=== PATIENT | female | born 1945 | race Caucasian/White ===

== ENCOUNTER 2020-03-06 06:22 | Day surgery (SDC) | payer MEDICARE, BC ==
[2020-03-06] MEDS ORDERED: Propofol 200 MG/20 ML SDV IV ONE (06:23)
[2020-03-06] MEDS ORDERED: Lactated Ringers 1,000 ML IV SCH (06:30)
[2020-03-06] MEDS ORDERED: Sodium Chloride 0.9% 10 ML Syringe FLUSH PRN (06:30)
--- NOTE | 2020-03-06 08:11 | PCM.HP.2 ---
H&P History of Present Illness - General Date of Service: 03/06/20 Admit Problem/Dx: Admission Diagnosis/Problem Admission Diagnosis/Problem Colonoscopy Source of Information: Patient, Old Records History Limitations: Reports: No Limitations - History of Present Illness Initial Comments - Free Text/Narative: Here for colonoscopy for hx polyps, last one 5 yrs ago - Related Data Allergies/Adverse Reactions: Allergies Allergy/AdvReac Type Severity Reaction Status Date / Time amoxicillin [From Augmentin] AdvReac Diarrhea Verified 03/06/20 07:04 clavulanic acid AdvReac Diarrhea Verified 03/06/20 07:04 [From Augmentin] Home Medications: Home Meds Moexipril/Hydrochlorothiazide [Moexipril-HCTZ 15-25 MG] 0.5 each PO DAILY 11/29/14 [History] Omeprazole [Prilosec] 40 mg PO Q2D 11/29/14 [History] Sertraline [Zoloft] 200 mg PO DAILY 11/29/14 [History] Tolterodine Tartrate [Tolterodine Tartrate ER] 4 mg PO DAILY 11/29/14 [History] atorvaSTATin [Lipitor] 20 mg PO BEDTIME 11/29/14 [History] busPIRone [Buspar] 10 mg PO BID 11/29/14 [History] atenoloL [Tenormin] 25 mg PO DAILY 12/03/14 [History] Acetaminophen [Tylenol] 650 mg PO Q6H PRN 03/05/20 [History] Albuterol Sulfate [Proair Hfa] 1 - 2 puff INH Q6H PRN 03/05/20 [History] Aspirin [Adult Low Dose Aspirin EC] 81 mg PO DAILY 03/05/20 [History] Azelastine [Astelin Nasal Soln] 2 inhalation NASBOTH BID 03/05/20 [History] Calcium Carbonate/Vitamin D3 [Calcium 600 + Vit D 200] 1 tab PO DAILY 03/05/20 [History] Carboxymethylcellulos/Glycerin [Refresh Optive] 1 drop OP ASDIRECTED PRN 03/05/20 [History] Cetirizine [ZyrTEC] 10 mg PO DAILY 03/05/20 [History] Cholecalciferol (Vitamin D3) [Vitamin D] 2,000 unit PO DAILY 03/05/20 [History] Ketotifen Fumarate [Zaditor] 1 drop EYEBOTH TID PRN 03/05/20 [History] Levothyroxine Sodium [Synthroid] 25 mcg PO DAILY 03/05/20 [History] Liraglutide [Victoza 3-Aris] 1.2 mg INJECT DAILY 03/05/20 [History] Magnesium Oxide [Magnesium] 800 mg PO DAILY 03/05/20 [History] Montelukast Sodium [Singulair] 10 mg PO BEDTIME 03/05/20 [History] Multivitamin [Multivitamins] 1 tab PO DAILY 03/05/20 [History] Nitroglycerin [Nitrostat] 0.4 mg SL ASDIRECTED PRN 03/05/20 [History] Nystatin 1 applic TOP BID 03/05/20 [History] O'Kean-3/DHA/Epa/Fish Oil [O'Kean-3 Fish Oil 1,000 MG Sfgl] 1,000 mg PO DAILY 03/05/20 [History] Potassium Chloride [Klor-Con M20] 20 meq PO BID 03/05/20 [History] Vit C/Vit E AC/Lut/Copper/Zinc [Preservision Softgel] 1 cap PO BID 03/05/20 [History] buPROPion HCL [Wellbutrin Xl] 150 mg PO DAILY 03/05/20 [History] guaiFENesin [Mucinex] 600 mg PO DAILY 03/05/20 [History] Past Medical History HEENT History: Reports: Cataract, Glaucoma, Impaired Vision, Macular Degeneration Cardiovascular History: Reports: High Cholesterol, Hypertension Respiratory History: Reports: Asthma, Sleep Apnea Gastrointestinal History: Reports: GERD Genitourinary History: Reports: Urinary Incontinence CASTING SORTER History: Reports: None Musculoskeletal History: Reports: Osteoarthritis Neurological History: Reports: None Psychiatric History: Reports: Anxiety, Depression Endocrine/Metabolic History: Reports: Diabetes, Type II Hematologic History: Reports: Anemia Immunologic History: Reports: None Oncologic (Cancer) History: Reports: None Dermatologic History: Reports: None - Past Surgical History Head Surgeries/Procedures: Reports: None HEENT Surgical History: Reports: Cataract Surgery Cardiovascular Surgical History: Reports: None Respiratory Surgical History: Reports: None GI Surgical History: Reports: Appendectomy, Cholecystectomy, Colonoscopy, Other (See Below) Other GI Surgeries/Procedures: HEMORRHOID SURGERY Female Surgical History: Reports: Breast Biopsy, Oophorectomy Endocrine Surgical History: Reports: None Neurological Surgical History: Reports: None Musculoskeletal Surgical History: Reports: Carpal Tunnel, Knee Replacement, Shoulder Replacement, Other (See Below) Other Musculoskeletal Surgeries/Procedures:: BILAT CARPAL TUNNEL RELEASE. L REVERSE TOTAL SHOULDER. BILAT KNEE REPLACEMENT Oncologic Surgical History: Reports: None Dermatological Surgical History: Reports: None Social & Family History - Tobacco Use Smoking Status *Q: Former Smoker Years of Tobacco use: 30 - Caffeine Use Caffeine Use: Reports: None - Recreational Drug Use Recreational Drug Use: No H&P Review of Systems - Review of Systems: Review Of Systems: See Below General: Reports: No Symptoms HEENT: Reports: No Symptoms Pulmonary: Reports: No Symptoms Cardiovascular: Reports: No Symptoms Gastrointestinal: Reports: No Symptoms Exam - Exam Exam: See Below - Vital Signs Vital Signs: Last Vital Signs Temp 98.4 F 03/06/20 07:18 Pulse 65 03/06/20 07:18 Resp 18 03/06/20 07:18 BP 122/76 03/06/20 07:18 Pulse Ox 96 03/06/20 07:18 Weight: 113.3 kg - Exam General: Alert, Oriented Lungs: Clear to Auscultation, Normal Respiratory Effort Cardiovascular: Regular Rate, Regular Rhythm GI/Abdominal Exam: Soft, Non-Tender, No Mass. No: Hernia - Patient Data Lab Results Last 24 hrs: Laboratory Results - last 24 hr 03/06/20 03/06/20 Range/Units 06:46 06:51 POC Glucose 91 (80-116) mg/dL SARS Virus RNA (PCR) Negative (NEGATIVE) Sepsis Event Note - Focused Exam Vital Signs: Vital Signs Temp Pulse Resp BP Pulse Ox 03/06/20 07:18 98.4 F 65 18 122/76 96 Date Exam was Performed: 03/06/20 Time Exam was Performed: 08:08 Problem List Initiated/Reviewed/Updated: Yes Orders Last 24hrs: Active Orders 24 hr Category Date Time Status Patient Status [ADT] Routine ADT 03/06/20 06:30 Active Blood Glucose Check, Bedside [RC] ONETIME Care 03/06/20 06:30 Active Patient to Empty Bladder [RC] ASDIRECTED Care 03/06/20 06:30 Active Verify Patient Consent Obtain [RC] ASDIRECTED Care 03/06/20 06:30 Active Nothing Per Oral Diet [DIET] Diet 03/05/20 Dinner Ordered Lactated Ringers [Ringers, Lactated] 1,000 ml Med 03/06/20 06:30 Active IV ASDIRECTED Sodium Chloride 0.9% [Saline Flush] Med 03/06/20 06:30 Active 10 ml FLUSH ASDIRECTED PRN Peripheral IV Insertion Adult [OM.PC] Routine Oth 03/06/20 06:30 Ordered Resuscitation Status Routine Resus Stat 03/05/20 13:33 Ordered Medication Orders Lactated Ringer's (Ringers, Lactated) 1,000 mls @ 125 mls/hr IV ASDIRECTED GLADYS Last Admin: 03/06/20 08:01 Dose: 125 mls/hr Documented by: ROBBY Sodium Chloride (Saline Flush) 10 ml FLUSH ASDIRECTED PRN PRN Reason: Keep Vein Open Assessment/Plan Comment:: Hx Colon Polyps Ok to proceed with colonoscopy; risks and complications reviewed, consent obtained
--- NOTE | 2020-03-06 08:36 | PCM.OPNOTE ---
- General Post-Op/Procedure Note Date of Surgery/Procedure: 03/06/20 Operative Procedure(s): Colonoscopy Findings: Normal Pre Op Diagnosis: Hx Polyps Post-Op Diagnosis: Same Anesthesia Technique: MAC Primary Surgeon: South Guajardo Anesthesia Provider: Carmen Blake Complications: None Condition: Good
[2020-03-06 09:14] VITALS: BP 101/62; PULSE 66
--- NOTE | 2020-03-06 12:34 | OR ---
DATE OF OPERATION: 03/06/2020 SURGEON: South Guajardo MD PREOPERATIVE DIAGNOSIS: History of colon polyps. POSTOPERATIVE DIAGNOSIS: Normal colonoscopy. PROCEDURE: Colonoscopy. ANESTHESIA: IV sedation. DESCRIPTION OF PROCEDURE: The patient was brought to the procedure room, where she was placed on her left side and IV sedation administered. Digital rectal exam was performed, which was normal. The colonoscope was inserted and advanced to the level of the cecum without difficulty. Cecal position was confirmed by identifying the appendiceal lumen and ileocecal valve. The prep was fair with thick liquid stool remaining on much of the rea that could have missed small polyps, but large polyps would have been identified. Upon withdrawing the scope, the ascending, transverse, and descending colon were normal in appearance. The sigmoid colon and rectum were normal. Retroflexion was normal. Air was removed and the scope withdrawn. The patient tolerated the procedure well and returned to Recovery in stable condition. No further colon screening is necessary due to patient's age. /[id number] MARY GRACE/REUBEN
== END 2020-03-06 09:17 | disposition home or self-care (01) ==
LOC: FB.SDS 06:22
PROVIDERS: ATTEND Surgery
DX: Z12.11 Encounter for screening for malignant neoplasm of colon (principal); E78.00 Pure hypercholesterolemia, unspecified; I10 Essential (primary) hypertension; F41.9 Anxiety disorder, unspecified; F32.9 Major depressive disorder, single episode, unspecified; E11.9 Type 2 diabetes mellitus without complications; Z11.59 Encounter for screening for other viral diseases; Z79.82 Long term (current) use of aspirin; Z87.891 Personal history of nicotine dependence; Z86.010 Personal history of colon polyps; Z98.890 Other specified postprocedural states; Z88.0 Allergy status to penicillin; Z88.1 Allergy status to other antibiotic agents; Z79.899 Other long term (current) drug therapy
CPT/HCPCS: 00811; 82962; G0105; J2704; J7120; U0002